=== PATIENT | female | born 1985 | race Two or more races ===

== ENCOUNTER 2024-12-22 19:58 | Emergency (ER) | payer OTHER ==
[~2024-12-22] VITALS: Ht 165.1 cm; Wt 111.4 kg
[2024-12-22 20:02] VITALS: BP 136/86; RESP 16; TEMP 99; O2SAT 97
[2024-12-22 20:51] VITALS: PULSE 95
--- NOTE | 2024-12-22 20:51 | ED.PDOC ---
History of Present Illness HPI Comments 39 y/o morbidly obese F, with no significant medical history, is BIBA for c/c of chest pain, shortness of breath, and bilateral arm and leg numbness. Patient reports sudden onset of symptoms at 1930, this evening, while driving. Reports only pertinent history of intermittent, left arm numbness for the past 2x weeks. Denies any palpitations, nausea, vomiting, cough, congestion, or further associated symptoms. Per EMS personnel report, patient was noted to have been hypertensive on scene at 180 systolic. Chief Complaint: Chest Pain Time Seen by MD: 20:20 Reviewed Notes: Nurses Notes, Fruit Sorter Notes Allergies: Coded Allergies: NO KNOWN ALLERGIES (Unverified , 12/22/24) Information Source: Patient, Emergency Med Personnel Mode of Arrival: EMS Severity: Moderate Timing: Hours Duration: Since onset Prehospital treatment: 12 Lead EKG, [facility] Bpm Consultant Past Medical History PAST MEDICAL HISTORY: Denies Surgical History: Denies all surgeries FIELD INSTALLER History: No Pertinent FIELD INSTALLER History Family History Family History: Unknown Social History Smoker: Non-Smoker Alcohol: Denies ETOH Use Drugs: Denies Drug Use Lives In: Home All Other Systems: Reviewed and Negative (Comprehensive systems review obtained and negative except for what is stated in the HPI.) Physical Exam General Appearance: Moderate Distress HEENT: Normal ENT Inspection, Pharynx Normal, TMs Normal Neck: Full Range of Motion, Non-Tender, Normal, Normal Inspection Respiratory: Chest Non-Tender, Lungs Clear, No Accessory Muscle Use, No Respiratory Distress, Normal Breath Sounds Cardiovascular: No Edema, No JVD, No Murmur, No Gallop, Normal Peripheral Pulses, Regular Rate/Rhythm Breast Exam: Deferred Gastrointestinal: No Organomegaly, Non Tender, No Pulsatile Mass, Normal Bowel Sounds, Soft Genitalia: Deferred Pelvic: Deferred Rectal: Deferred Extremities: No calf tenderness, Normal capillary refill, Normal inspection, Normal range of motion, Non-tender, No pedal edema Musculoskeletal : Apperance: Normal Neurologic: Alert, systems specialist II-XII nml as Tested, No Motor Deficits, Normal Affect, Normal Mood, No Sensory Deficits Cerebellar Function: Normal Reflexes: Normal Skin: Dry, Normal Color, Warm Peripheral Pulses: 3+ Radial (R), 3+ Radial (L) Lymphatic: No Adenopathy Was a procedure done? Was a procedure done?: No EKG EKG : Pulse Rate (adult): 95 [place]: Normal Cardiac Rhythm: NSR Block: None Hypertrophy: None ST: Normal Differential Dx Considerations may include: ID, PE, ACS, URI, PNA, viral syndrome, angina, anxiety, among others X-Ray, Labs, Meds, VS Vital Signs Date Time Temp Pulse Resp B/P (MAP) Pulse Ox O2 Delivery O2 Flow Rate FiO2 12/22/24 20:51 95 12/22/24 20:02 99.0 103 16 136/86 97 99.0 12/22/24 20:01 95 Lab Test 12/22/24 22:11 12/22/24 21:00 12/22/24 20:40 Range/Units Troponin I High Sensitivity < 3 L < 3 L </=34 ng/L Urine Color Colorless Yellow Urine Clarity Clear Clear Urine pH 5.5 5.0-9.0 Urine Specific [place] 1.008 1.001-1.035 Urine Protein Negative Negative Urine Ketones Negative Negative Urine Blood Negative Negative /uL Urine Nitrite Negative Negative Urine Bilirubin Negative Negative Urine Urobilinogen Normal Negative mg/dL Urine Leukocyte Esterase Negative Negative /uL Urine RBC <1 0 - 4 /hpf Urine Microscopic WBC 1 0-5 /HPF Urine Squamous Epithelial Cells Few <5 /hpf Urine Bacteria Few H None Seen /hpf Urine Glucose Normal Normal mg/dL D-Dimer, Quantitative < 0.19 0.0-0.49 mg/L FEU Patient alert. Came in because of chest pain. Vitals stable. Answering questions. EKG reviewed does not show any acute changes. Cardiac marker within normal limits. Neurological exam intact. Heart rate within normal limits. Saturation pristine on room air. No leg swelling. No sign of distress. Explained to the patient. Was told to follow up with her primary care physician. Was told to come back if there is any problem. Time of 1ST Reevaluation: 20:50 Reevaluation 1ST: Unchanged Patient Education/Counseling: Diagnosis, Treatment, Need For Follow Up Family Education/Counseling: No Family Present SEPSIS Sepsis Screen Date sepsis recognized/suspect: Dec 22, 2024 Time Sepsis recognized/suspect: 2001 Recent Procedure: No On Antibiotic Therapy: No Respiratory Rate >20: No Heart Rate >90: No Temp<36 C (96.8 F) or >38.3 C: No SBP <90 or MAP <65 mmHG: No New Acute Mental Status Change: No Is the patient on CPAP, BIPAP,: No Physician Orders Electrocardigram (12/22/24 20:21) Troponin-I Hs (12/22/24 23:31) Vital Signs Date Time Temp Pulse Resp B/P (MAP) Pulse Ox O2 Delivery O2 Flow Rate FiO2 12/22/24 20:51 95 12/22/24 20:02 99.0 103 16 136/86 97 99.0 12/22/24 20:01 95 Departure 1 Departure Time of Disposition: 23:10 Impression: Primary Impression: Musculoskeletal chest pain Additional Impression: Anxiety Disposition: 01 HOME / SELF CARE / HOMELESS Condition: Good Discharged With: Self Critical Care Note Critical Care Time?: No Stability Stability form required: No Heart Score Heart Score: Heart Score Response (Comments) Value History Slightly Suspicious 0 EKG Normal 0 Age <45 0 Risk Factors No known risk factors 0 Troponin Normal limit 0 Total 0 I personally scribed for BRIANDA LONG MD ([email or web address]) on 12/22/24 at 20:51. Electronically submitted by Jules Aguillon ([email or web address]). BRIANDA LONG MD Dec 22, 2024 20:51
[2024-12-22 22:26] LABS: Urine Protein, UAD Negative (Negative)
--- NOTE | 2024-12-23 10:01 | ECG ---
[facility] Test Date: 2024-12-22 Test Time: 20:01:09 Pat Name: YESICA GUNN Department: [facility] ED Patient ID: [facility]-[id number] Room: Gender: F Care Director Rn: priscilla : 1985 Requested By: EMERGENCY EMERGENCY Order Number: [id number] Reading MD: Measurements Intervals [place] Rate: 95 P: 26 MI: 195 QRS: 27 QRSD: 109 T: 22 QT: 362 QTc: 455 Interpretive Statements Sinus rhythm Please click the below link to view image of tracing.
== END 2024-12-23 00:25 | disposition home or self-care (01) ==
LOC: EDBD 19:58 → ER 19:58
DX: R07.89 Other chest pain (principal); F41.9 Anxiety disorder, unspecified; I10 Essential (primary) hypertension
CPT/HCPCS: 36415; 81001; 84484; 85379; 93005